=== PATIENT | female | born 1980 | race Caucasian/White ===

== ENCOUNTER 2017-10-24 22:20 | Emergency (ER) | payer OTHER ==
[~2017-10-24] VITALS: Ht 172.7 cm; Wt 75.0 kg
[2017-10-24 22:25] VITALS: BP 126/83
[2017-10-24] MEDS ORDERED: MUPI22OI30 TOP (23:18)
[2017-10-24] MEDS ORDERED: CEPH500C2 PO (23:18)
== END 2017-10-24 23:35 | disposition home or self-care (01) ==
LOC: ER 22:21
DX: L03.115 Cellulitis of right lower limb (principal)
CPT/HCPCS: 99283